=== PATIENT | male | born 1930 | race Caucasian/White ===

== ENCOUNTER 2016-02-29 02:56 | Emergency (ER) | payer OTHER ==
[2016-02-29] MEDS ORDERED: DILAUDID 1 MG/ML AMP ONE ×3 (03:07→14:54)
[2016-02-29] MEDS ORDERED: SODIUM CHLORIDE 0.9% 500 ML IV ONE (03:48)
[2016-02-29] MEDS ORDERED: ETOMIDATE 2 MG/ML 20 ML SYR IV ONE (03:57)
[2016-02-29] MEDS ORDERED: KETOROLAC 30 MG/ML VIAL ONE (14:54)
== END 2016-02-29 05:21 | disposition home or self-care (01) ==
LOC: ER 02:56
CPT/HCPCS: 73020; 73030; 96374 ×2; 96376 ×2; 99285; J1170; J1885; J7040